=== PATIENT | male | born 1955 | race Caucasian/White ===

== ENCOUNTER 2023-11-29 22:42 | Inpatient (IN) | payer MEDICARE, OTHER ==
[2023-11-29] MEDS ORDERED: NITROGLYCERIN SL TABS 0.4 MG TAB SUBLINGUAL PRN (22:59)
--- NOTE | 2023-11-29 22:59 | ED ---
Chest Pain HPI - General Stated Complaint: chest pain Time Seen by Provider: 11/29/23 22:49 Source: patient Mode of arrival: EMS Limitations: no limitations - History of Present Illness Initial Comments: Patient is a 68-year-old man who was awakened from sleep by chest pain in the early afternoon. The patient had gone to [facility] in [facility] to have evaluation. While the patient was there he had negative initial workup but then second troponin was elevated at 0.391. The patient was then transferred here to have admission for cardiology. The patient states that the symptoms were relieved at the other facility. He had aspirin, nitroglycerin, 2 doses, heparin, and was transferred here. The patient remains symptom-free currently. He denies history of previous CT/stenting. MD Complaint: chest pain Onset/Timin -: hour(s) Onset: during rest Pain Location: left chest, right chest Pain Radiation: RUE, LUE, back, neck Severity: moderate Quality: aching Consistency: now resolved Improves With: nitroglycerin Worsens With: nothing Treatments Prior to Arrival: aspirin, nitroglycerin, oxygen - Related Data Home Medications Medication Instructions Recorded Confirmed Acyclovir [Zovirax] 400 mg PO BID 11/30/23 11/30/23 Sulfamethox-Tmp 800-160Mg [Bactrim 1 tab PO MOWEFR 11/30/23 11/30/23 DS 800-160 mg] predniSONE 5 mg PO DAILY 11/30/23 11/30/23 Previous Rx's Medication Instructions Recorded Aspirin 81 mg PO DAILY #30 tab 12/01/23 Atorvastatin [Lipitor] 80 mg PO HS #30 tab 12/01/23 Losartan [Cozaar] 12.5 mg PO DAILY #15 tab 12/01/23 Metoprolol Succinate (ER) [Toprol 12.5 mg PO DAILY #15 tab 12/01/23 XL] Nitroglycerin Sl Tabs [Nitrostat] 0.4 mg SUBLINGUAL Q5M PRN #20 tab 12/01/23 Ticagrelor [Brilinta] 90 mg PO BID #60 tab 12/01/23 Allergies Allergy/AdvReac Type Severity Reaction Status Date / Time bee venom protein (honey bee) Allergy Anaphylaxis Verified 11/30/23 11:27 hazelnut Allergy Anaphylaxis Verified 11/30/23 11:27 Review of Systems ROS Statement: Those systems with pertinent positive or pertinent negative responses have been documented in the HPI. ROS Other: All systems not noted in ROS Statement are negative. Constitutional: Denies: fever, chills, weakness Respiratory: Denies: cough, dyspnea Cardiovascular: Reports: as per HPI, chest pain. Denies: palpitations, orthopnea, edema, syncope Gastrointestinal: Denies: abdominal pain, nausea, vomiting, diarrhea, constipation Genitourinary: Denies: dysuria, hematuria Musculoskeletal: Denies: back pain Skin: Denies: rash Neurological: Denies: headache, weakness, numbness Past Medical History - Past Family History Father Family Medical History: Coronary Artery Disease (CAD) Mother Family Medical History: Cancer General Exam General appearance: alert, in no apparent distress Head exam: Present: atraumatic, normocephalic Eye exam: Present: normal appearance. Absent: scleral icterus, conjunctival injection ENT exam: Present: normal oropharynx Neck exam: Present: normal inspection Respiratory exam: Present: normal lung sounds bilaterally. Absent: respiratory distress, wheezes, rales, rhonchi, stridor, accessory muscle use Cardiovascular Exam: Present: regular rate, normal rhythm, normal heart sounds. Absent: systolic murmur, diastolic murmur, rubs, gallop GI/Abdominal exam: Present: soft. Absent: distended, tenderness, guarding, rebo und, rigid, mass Extremities exam: Present: normal inspection, normal capillary refill. Absent: pedal edema, calf tenderness Back exam: Present: normal inspection. Absent: CVA tenderness (R), CVA tenderness (L) Neurological exam: Present: alert Skin exam: Present: warm, dry, intact, normal color. Absent: rash Course Vital Signs 11/29/23 11/29/23 11/30/23 22:52 23:04 00:04 Temperature 97.2 F L Pulse Rate 65 77 66 Respiratory 20 14 16 Rate Blood Pressure 180/100 141/108 157/89 O2 Sat by Pulse 97 96 Oximetry Chest Pain MDM - MDM Was pt. sent in by a medical professional or institution (, PA, BLEACH MAKER, urgent care, hospital, or assisted...) When possible be specific @ -[No] Did you speak to anyone other than the patient for history (EMS, parent, family, police, friend...)? What history was obtained from this source @ -[No] Did you review nursing and triage notes (agree or disagree)? Why? @ -[I reviewed and agree with nursing and triage notes] Were old charts reviewed (outside hosp., previous admission, EMS record, old EKG, old radiological studies, urgent care reports/EKG's, assisted records)? Report findings @ -[Transfer charts were reviewed] Differential Diagnosis (chest pain, altered mental status, abdominal pain women, abdominal pain men, vaginal bleeding, weakness, fever, dyspnea, syncope, headache, dizziness, GI bleed, back pain, seizure, CVA, palpatations, mental health, musculoskeletal)? @ -[Differential Chest Pain: Stable Angina, Unstable Angina, STEMI, NSTEMI Aortic Dissection, Pneumothorax, Musculoskeletal, Esophageal Spasm GERD, Cholecystitis, Pancreatitis, Zoster, this is not meant to be an all-inclusive list. EKG interpreted by me (3pts min.). @ -[I interpreted as above] X-rays interpreted by me (1pt min.). @ -[None done] CT interpreted by me (1pt min.). @ -[None done] U/S interpreted by me (1pt. min.). @ -[None done] What testing was considered but not performed or refused? (CT, X-rays, U/S, labs)? Why? @ -[None] What meds were considered but not given or refused? Why? @ -[None] Did you discuss the management of the patient with other professionals (professionals i.e. , PA, BLEACH MAKER, lab, RT, psych nurse, social science manager, developer prover mechanical, teacher, tank officer, case advocate)? Give summary @ -[Yes Case is discussed with the admitting physician and with cardiology Was smoking cessation discussed for >3mins.? @ -[No] Was critical care preformed (if so, how long)? @ -[No] Were there social determinants of health that impacted care today? How? (Homelessness, low income, unemployed, alcoholism, drug addiction, transportation, low edu. Level, literacy, decrease access to med. care, senior care, rehab)? @ -[No] Was there de-escalation of care discussed even if they declined (Discuss DNR or withdrawal of care, Hospice)? DNR status @ -[No] What co-morbidities impacted this encounter? (DM, HTN, Smoking, COPD, CAD, Cancer, CVA, ARF, Chemo, Hep., AIDS, mental health diagnosis, sleep apnea, morbid obesity)? @ -[None] Was patient admitted / discharged? Hospital course, mention meds given and route, prescriptions, significant lab abnormalities, going to OR and other pertinent info. @ -[Patient is a 68-year-old man who was transferred here from the outside hospital to have cardiology evaluation and probable heart catheterization. The patient arrives with resolution of all symptoms. Admission orders are entered including repeat troponins Undiagnosed new problem with uncertain prognosis? @ -[No] Drug Therapy requiring intensive monitoring for toxicity (Heparin, Nitro, Insulin, Cardizem)? @ -[No] Were any procedures done? @ -[No] Diagnosis/symptom? @ -[Acute coronary syndrome, with elevated troponin Acute, or Chronic, or Acute on Chronic? @ -[Acute Uncomplicated (without systemic symptoms) or Complicated (systemic symptoms)? @ -[Uncomplicated Side effects of treatment? @ -[No] Exacerbation, Progression, or Severe Exacerbation? @ -[No] Poses a threat to life or bodily function? How? (Chest pain, USA, CT, pneumonia, PE, COPD, DKA, ARF, appy, cholecystitis, CVA, Diverticulitis, Homicidal, Suicidal, threat to staff... and all critical care pts) @ -[Yes, requires further cardiology evaluation Disposition Clinical Impression: NSTEMI (non-ST elevated myocardial infarction) Disposition: ADMITTED IP TO THIS HOSP Condition: Fair
[2023-11-29] MEDS: HEPARIN SOD,PORK IN 0.45% NACL 25,000 UNIT in 0.45% NACL 1 250ML.BAG IV SCH (23:29)
[2023-11-30] MEDS: NITROGLYCERIN-D5W PMX 50 MG in DEXTROSE/WATER 1 250ML.BAG IV SCH (02:25)
[2023-11-30 03:44] LABS: Mean Platelet Volume 7.8; Platelet Count 223 k/uL (150-450)
[2023-11-30] MEDS ORDERED: LIDOCAINE 1% INJ 10MG/ML (20 ML MDV) ONE (03:56)
[2023-11-30] MEDS ORDERED: HEPARIN SODIUM 1,000 UN/ML (10ML VL) ONE ×2 (03:57→05:05)
[2023-11-30] MEDS ORDERED: fentaNYL (PF) 50 MCG/ML 2 ML AMP ONE (03:57)
[2023-11-30] MEDS ORDERED: VERAPAMIL 2.5 MG/ML 2 ML AMP ONE (03:57)
--- NOTE | 2023-11-30 03:57 | P.CRDCN ---
History of Present Illness History of present illness: HISTORY OF PRESENTING ILLNESS This is a pleasant 68-year-old with past medical history significant for cryoglobulinemia, family history of coronary artery disease who presents as a transfer from [place]. He states over last 1 month he has been having off and on epigastric pain which feels like his normal GERD. He did have workup 25 years ago secondary to GERD type symptoms and had a heart catheterization with reportedly normal coronary arteries and therefore diagnosed with GERD. He was somewhat taking antacids and sometimes the discomfort will go away. Symptoms have been more progressive and therefore went to the emergency department and found to have non-STEMI. He was given aspirin, nitro and heparin and symptoms resolved. He therefore was transferred to [facility] for possible catheterization, intervention. Symptoms had completely gone away however over the last few hours he did have some mild 3/10 discomfort. His discomfort however did not improve and currently 5 out of 10 and therefore catheterization lab was called in. he states he has been fairly well controlled with his cryoglobulinemia on prednisone 5 mg daily. No tobacco, occasional alcohol and no illicit drugs. Father had MO and no other significant family history. Additionally has been having some increased shortness breath with exertion or last 1 month. EKG showing normal sinus rhythm, left axis deviation, nonspecific minimal ST depressions 1 and aVL. Blood work shows troponin 0.39. REVIEW OF SYSTEMS At the time of my exam: CONSTITUTIONAL: Denies fever or chills. CARDIOVASCULAR: +chest pain, +shortness of breath, no orthopnea, PND or palpitations. RESPIRATORY: Denies cough. GASTROINTESTINAL: Denies abdominal pain, diarrhea, constipation, nausea or vomiting. MUSCULOSKELETAL: Denies myalgias. NEUROLOGIC: Denies numbness, tingling or weakness. ENDOCRINE: Denies fatigue, weight change, polydipsia or polyurina. GENITOURINARY: Denies burning, hematuria or urgency with micturation. HEMATOLOGIC: Denies history of anemia or bleeding. PHYSICAL EXAMINATION Vital signs reviewed. CONSTITUTIONAL: No apparent distress. HEENT: Head is normocephalic. Pupils are equal, round. Sclerae anicteric. Mucous membranes of the mouth are moist. No JVD. No carotid bruit. CHEST EXAMINATION: Lungs are clear to auscultation. No chest wall tenderness is noted on palpation or with deep breathing. HEART EXAMINATION: Regular rate and rhythm. S1, S2 heard. No murmurs, gallops or rub. ABDOMEN: Soft, nontender. Positive bowel sounds. EXTREMITIES: 2+ peripheral pulses, no lower extremity edema and no calf tenderness. NEUROLOGIC EXAMINATION: Patient is awake, alert and oriented x3. ASSESSMENT non-STEMI Hyperlipidemia GERD Family history of CAD Cryoglobulinemia PLAN blood work consistent with non-STEMI with increasing troponin. Given ongoing chest pain. Discussed urgent heart catheterization patient agreeable. Aspirin, heparin, nitro drip. Check 2-D echo. Further recommendations to follow. Past Medical History Past Medical History: GERD/Reflux, Prostate Disorder Additional Past Medical History / Comment(s): Cryoglobulin anemia, History of Any Multi-Drug Resistant Organisms: None Reported Past Surgical History: Heart Catheterization, Orthopedic Surgery, Prostate Surgery Past Anesthesia/Blood Transfusion Reactions: No Reported Reaction Past Psychological History: No Psychological Hx Reported Smoking Status: Never smoker Past Alcohol Use History: Occasional Past Drug Use History: None Reported - Past Family History Father Family Medical History: Coronary Artery Disease (CAD) Mother Family Medical History: Cancer Medications and Allergies Allergies Allergy/AdvReac Type Severity Reaction Status Date / Time No Known Allergies Allergy Verified 11/29/23 22:47 Physical Exam Vitals: Vital Signs Temp Pulse Pulse Resp BP BP Pulse Ox 11/30/23 03:35 61 16 120/70 97 11/30/23 03:27 61 18 117/76 98 11/30/23 03:10 65 120/72 11/30/23 02:59 60 16 123/76 97 11/30/23 02:50 64 16 134/80 95 11/30/23 02:45 64 134/86 11/30/23 02:37 65 16 161/84 100 11/30/23 02:31 63 16 159/83 99 11/30/23 02:27 155/83 11/30/23 00:35 98.2 F 64 18 163/83 99 11/30/23 00:04 66 16 157/89 96 11/29/23 23:04 77 14 141/108 11/29/23 22:52 97.2 F L 65 20 180/100 97 Intake and Output 11/29/23 11/29/23 11/30/23 14:59 22:59 06:59 Intake Total 16.643 Balance 16.643 Intake: Intake, IV Titration 16.643 Amount Heparin Sod,Pork in 0.45% 15.668 NaCl 25,000 unit In 0.45 % NaCl 1 250ml.bag @ 12 UNITS/KG/HR 8.546 mls/hr IV .Q24H [place] Rx#: [id number] Nitroglycerin-D5w Pmx 50 0.975 mg In Dextrose/Water 1 250ml.bag @ 5 MCG/MIN 1.5 mls/hr IV .Q24H [place] Rx#: [id number] Other: Weight 71.214 kg 71.214 kg Results 11/30/23 02:50 Cardiac Enzymes 11/30/23 Range/Units 00:28 Troponin I 4.580 H* (0.000-0.034) ng/mL Coagulation 11/30/23 Range/Units 00:28 APTT 39.2 H (22.0-30.0) sec CBC 11/30/23 Range/Units 02:50 Plt Count 223 (150-450) k/uL Current Medications Generic Name Dose Route Start Last Admin Trade Name Freq PRN Reason Stop Dose Admin Aspirin 325 mg 11/30/23 09:00 Aspirin 325 Mg Tab PO DAILY [place] Heparin Sodium/Sodium Chloride 250 mls @ 8.546 mls/hr 11/29/23 23:00 11/30/23 01:19 25,000 unit/ Sodium Chloride IV 14 units/kg/hr .Q24H [place] 9.97 mls/hr Titration Protocol 12 UNITS/KG/HR Nitroglycerin/Dextrose 50 mg/ 250 mls @ 1.5 mls/hr 11/30/23 02:15 11/30/23 02:45 IV Solution IV 20 mcg/min .Q24H [place] 6 mls/hr Infusion 5 MCG/MIN Nitroglycerin 0.4 mg 11/29/23 22:59 Nitroglycerin Sl Tabs 0.4 Mg Tab SUBLINGUAL Q5M PRN Chest Pain Intake and Output 11/29/23 11/29/23 11/30/23 14:59 22:59 06:59 Intake Total 16.643 Balance 16.643 Intake: Intake, IV Titration 16.643 Amount Heparin Sod,Pork in 0.45% 15.668 NaCl 25,000 unit In 0.45 % NaCl 1 250ml.bag @ 12 UNITS/KG/HR 8.546 mls/hr IV .Q24H [place] Rx#: [id number] Nitroglycerin-D5w Pmx 50 0.975 mg In Dextrose/Water 1 250ml.bag @ 5 MCG/MIN 1.5 mls/hr IV .Q24H [place] Rx#: [id number] Other: Weight 71.214 kg 71.214 kg Patient Weight 11/30/23 06:59 Weight 71.214 kg 11/30/23 02:50
[2023-11-30] MEDS: fentaNYL (PF) 50 MCG/ML 2 ML AMP IVP ONE (04:02)
[2023-11-30] MEDS: MIDAZOLAM 2 MG/2 ML VIAL IVP ONE (04:02)
[2023-11-30] MEDS: HEPARIN SODIUM 1,000 UN/ML (10ML VL) IVP ONE ×4 (04:11→05:08)
[2023-11-30] MEDS ORDERED: TICAGRELOR 90 MG TAB ONE (04:14)
[2023-11-30] MEDS: TICAGRELOR 90 MG TAB PO ONE (04:18)
[2023-11-30] MEDS: NITROGLYCERIN 1000MCG/10ML SYRINGE INTRACORON ONE ×2 (04:35→04:54)
--- NOTE | 2023-11-30 05:17 | P.PRCINT ---
Percutaneous Coronary Int. - Percutaneous Coronary Intervention Percutaneous Coronary Intervention: PROCEDURES PERFORMED: Left heart catheterization, bilateral coronary angiography, ultrasound guided arterial access, Penumbra aspiration thrombectomy LAD, PCI mid LAD with a 2.75 x 23mm Xience XENIA, post dilated with a 3.0mm NC balloon INDICATION: non-STEMI CONSENT:I have discussed the risks, benefits and alternative therapies for the above-mentioned procedure and for both sedation/analgesia as well as necessary blood product administration, if indicated, as they pertain to this patient. The patient has indicated understanding and acceptance of the risks and procedures discussed. PROCEDURE: After the risks, benefits and alternatives of the above mentioned procedure explained in detail with the patient, informed consent was obtained. Patient was taken to the catheterization lab and prepped and draped in usual fashion. Ultrasound guidance was used to assess for arterial access. 1% lidocaine was used to anesthetize the right radial artery. A 6-Senegalese sheath was placed in the right radial artery using modified Seldinger technique and ultrasound guidance. Left coronary angiography was performed with a 5-Senegalese JL 3.5 catheter and right coronary angiography was performed with a 5-Senegalese FR5 catheter in various views. A 5-Senegalese FR5 catheter was inserted into the left ventricle and pressure measurements were obtained. the decision was made to perform PCI of LAD. A 6-Senegalese CLS 3.5 guiding disease engage the left main. A 0.014 BMW and whisper wire were attempted to be advanced however were going down the septal branch. Therefore a 0.014 commercial airplane pilot 200 was used and able to make the angulation into the distal LAD. Penumbra aspiration was performed for 2 passes. Next balloon angioplasty was performed with a 2.5 x 12 mm balloon. Next intravascular ultrasound was attempted however technical difficulties. A 2.75 x 23 mm Xience drug-eluting stent was placed. The proximal and midportion of the stent were postdilated with a 3.0 mm noncompliant balloon. Final angiograms were performed. Preintervention there was 100% stenosis with JOSSE 0 flow and postintervention there was less than 10% stenosis with JOSSE 3 flow. There was a more proximal 40-50% stenosis just after the diagonal branch however felt best treated medically. The right radial sheath was removed and a TR band was placed with hemostasis achieved. The patient tolerated the procedure well. Patient was transported back to the post catheterization holding area in stable condition. Conscious Sedation: Patient was monitored under the direct supervision of myself for conscious sedation using Versed and fentanyl for a total duration of 56 minutes HEMODYNAMICS: Aorta: 122/63 LV: 115/5, LVEDP 22 SELECTIVE CORONARY ARTERIOGRAPHY: LEFT MAIN: The left main is a large caliber vessel which bifurcates into the LAD and circumflex. There is no significant stenosis. LEFT ANTERIOR DESCENDING CORONARY ARTERY: LAD is a large caliber vessel which wraps around to the apex. There is 10% proximal LAD stenosis and gives off a moderate caliber diagonal branch. Just after the diagonal branch there is a 40- 50% stenosis followed by a 100% mid LAD stenosis with some left to left collaterals and right to left collaterals. LEFT CIRCUMFLEX CORONARY ARTERY: Left circumflex is a moderate to large caliber vessel with proximal and mid 30-40% stenosis and otherwise mild luminal irregularities. RIGHT CORONARY ARTERY: The right coronary artery is a large caliber vessel which gives off a PDA and PLV branch and is the dominant vessel. There is diffuse 30- 40% stenosis of the proximal mid RCA. There are right to left collaterals FINAL IMPRESSION: 1. CAD as described above including 30-40% proximal and mid RCA, 30-40% proximal and mid circumflex, 100% mid LAD stenosis 2. Elevated left sided filling pressures PLAN: 1. Aggressive risk factor modification per most recent ACC/AHA guidelines. 2. Continue dual antiplatelets with aspirin and Brillinta for 12 months
[2023-11-30] MEDS ORDERED: ZOLPIDEM 5 MG TAB PO PRN (05:18)
[2023-11-30] MEDS ORDERED: RX INFO: IV CONTRAST WAS GIVEN 1 EACH MISC MISCELLANE PRN (05:18)
[2023-11-30] MEDS ORDERED: ATROPINE SULFATE 0.1 MG/ML 10ML SYRINGE IV PRN (05:18)
[2023-11-30] MEDS: IV FLUID CONTINUATION 800 ML IV ONE (05:27)
[2023-11-30] MEDS: HEPARIN SOD,PORK IN 0.45% NACL 25,000 UNIT in 0.45% NACL 1 250ML.BAG IV ONE (05:27)
[2023-11-30] MEDS: NITROGLYCERIN-D5W PMX 50 MG in DEXTROSE/WATER 1 250ML.BAG IV ONE (05:28)
[2023-11-30] MEDS: IOPAMIDOL-370 100ML BTL INJ ONE (05:30)
[2023-11-30] MEDS: SODIUM CHLORIDE 0.9% 1,000 ML in EMPTY BAG 1 BAG IV SCH (05:40)
[2023-11-30] MEDS ORDERED: MAG HYDROX/AL HYDROX/SIMETH 30 ML CUP PO PRN (08:00)
[2023-11-30] MEDS: LOSARTAN 25 MG TAB PO SCH (08:40)
[2023-11-30] MEDS: ASPIRIN 81 MG PO SCH (08:41)
[2023-11-30] MEDS: METOPROLOL SUCCINATE (ER) 25 MG TAB.ER.24H PO SCH (08:41)
[2023-11-30] MEDS: TICAGRELOR 90 MG TAB PO SCH (08:42)
[2023-11-30] MEDS ORDERED: ASPIRIN 325 MG TAB PO SCH (09:00)
[2023-11-30 13:15] LABS: Chol/HDL Ratio 4.39 Ratio
[2023-11-30 13:16] LABS: LDL Cholesterol,Calculated 128.7 mg/dL (0.0-131.0)
[2023-11-30 14:37] VITALS: BMI 30.7
--- NOTE | 2023-11-30 16:57 | P.HPIM ---
History of Present Illness H&P Date: 11/30/23 Chief Complaint: Chest pain 68-year-old man who was awakened from sleep by chest pain in the early afternoon. The patient had gone to [facility] to have evaluation. While the patient was there he had negative initial workup but then second troponin was elevated at 0.391. The patient was then transferred here to have admission for cardiology. The patient states that the symptoms were relieved at the other facility. He had aspirin, nitroglycerin, 2 doses, heparin, and was transferred here. The patient remains symptom-free currently. He denies history of previous MA/stenting. Blood work completed in our ER reveals magnesium of 2.4, troponin trending up from 4.5 up to 6.33, total cholesterol of 207, LDL of 128 and HDL of 47 EKG showing normal sinus rhythm, left axis deviation, nonspecific minimal ST depressions 1 and aVL. Patient is evaluated by cardiology and is recommended cardiac catheterization Review of Systems REVIEW OF SYSTEMS: CONSTITUTIONAL: No fever, no malaise, no fatigue. HEENT: No recent visual problems or hearing problems. Denied any sore throat. CARDIOVASCULAR: No chest pain, orthopnea, PND, no palpitations, no syncope. PULMONARY: No shortness of breath, no cough, no hemoptysis. GASTROINTESTINAL: No diarrhea, no nausea, no vomiting, no abdominal pain. NEUROLOGICAL: No headaches, no weakness, no numbness. HEMATOLOGICAL: Denies any bleeding or petechiae. GENITOURINARY: Denies any burning micturition, frequency, or urgency. MUSCULOSKELETAL/RHEUMATOLOGICAL: Denies any joint pain, swelling, or any muscle pain. ENDOCRINE: Denies any polyuria or polydipsia. The rest of the 14-point review of systems is negative. Past Medical History Past Medical History: GERD/Reflux, Prostate Disorder Additional Past Medical History / Comment(s): Cryoglobulin anemia, History of Any Multi-Drug Resistant Organisms: None Reported Past Surgical History: Heart Catheterization, Orthopedic Surgery, Prostate Surgery Past Anesthesia/Blood Transfusion Reactions: No Reported Reaction Past Psychological History: No Psychological Hx Reported Smoking Status: Never smoker Past Alcohol Use History: Occasional Past Drug Use History: None Reported - Past Family History Father Family Medical History: Coronary Artery Disease (CAD) Mother Family Medical History: Cancer Medications and Allergies Home Medications Medication Instructions Recorded Confirmed Type Acyclovir [Zovirax] 400 mg PO BID 11/30/23 11/30/23 History Sulfamethox-Tmp 800-160Mg [Bactrim 1 tab PO MOWEFR 11/30/23 11/30/23 History DS 800-160 mg] predniSONE 5 mg PO DAILY 11/30/23 11/30/23 History Allergies Allergy/AdvReac Type Severity Reaction Status Date / Time bee venom protein (honey bee) Allergy Anaphylaxis Verified 11/30/23 11:27 hazelnut Allergy Anaphylaxis Verified 11/30/23 11:27 Physical Exam Vitals: Vital Signs Temp Pulse Pulse Resp BP BP BP 11/30/23 09:40 66 20 127/76 11/30/23 08:43 67 20 126/82 11/30/23 07:39 98 F 64 20 119/76 11/30/23 06:25 62 16 119/72 11/30/23 06:10 56 L 18 113/72 11/30/23 05:55 18 110/69 11/30/23 05:40 16 111/68 11/30/23 05:26 16 136/75 11/30/23 03:35 61 16 120/70 11/30/23 03:27 61 18 117/76 11/30/23 03:10 65 120/72 11/30/23 02:59 60 16 123/76 11/30/23 02:50 64 16 134/80 11/30/23 02:45 64 134/86 11/30/23 02:37 65 16 161/84 11/30/23 02:31 63 16 159/83 11/30/23 02:27 155/83 11/30/23 00:35 98.2 F 64 18 163/83 11/30/23 00:04 66 16 157/89 11/29/23 23:04 77 14 141/108 11/29/23 22:52 97.2 F L 65 20 180/100 Pulse Ox 11/30/23 09:40 11/30/23 08:43 99 11/30/23 07:39 100 11/30/23 06:25 98 11/30/23 06:10 96 11/30/23 05:55 97 11/30/23 05:40 95 11/30/23 05:26 96 11/30/23 03:35 97 11/30/23 03:27 98 11/30/23 03:10 11/30/23 02:59 97 11/30/23 02:50 95 11/30/23 02:45 11/30/23 02:37 100 11/30/23 02:31 99 11/30/23 02:27 11/30/23 00:35 99 11/30/23 00:04 96 11/29/23 23:04 11/29/23 22:52 97 Intake and Output 11/29/23 11/30/23 11/30/23 22:59 06:59 14:59 Intake Total 136.643 Balance 136.643 Intake: IV 120 Intake, IV Titration 16.643 Amount Heparin Sod,Pork in 0.45% 15.668 NaCl 25,000 unit In 0.45 % NaCl 1 250ml.bag @ 12 UNITS/KG/HR 8.546 mls/hr IV .Q24H [facility] Rx#: [id number] Nitroglycerin-D5w Pmx 50 0.975 mg In Dextrose/Water 1 250ml.bag @ 5 MCG/MIN 1.5 mls/hr IV .Q24H [facility] Rx#: [id number] Other: Weight 71.214 kg 78.5 kg General appearance: alert, in no apparent distress Head exam: Present: atraumatic, normocephalic Eye exam: Present: normal appearance. Absent: scleral icterus, conjunctival injection ENT exam: Present: normal oropharynx Neck exam: Present: normal inspection Respiratory exam: Present: normal lung sounds bilaterally. Absent: respiratory distress, wheezes, rales, rhonchi, stridor, accessory muscle use Cardiovascular Exam: Present: regular rate, normal rhythm, normal heart sounds. Absent: systolic murmur, diastolic murmur, rubs, gallop GI/Abdominal exam: Present: soft. Absent: distended, tenderness, guarding, rebound, rigid, mass Extremities exam: Present: normal inspection, normal capillary refill. Absent: pedal edema, calf tenderness Back exam: Present: normal inspection. Absent: CVA tenderness (R), CVA tenderness (L) Neurological exam: Present: alert Skin exam: Present: warm, dry, intact, normal color. Absent: rash Results CBC & Chem 7: 11/30/23 02:50 Labs: Abnormal Lab Results - Last 24 Hours (Table) 11/30/23 11/30/23 11/30/23 Range/Units 00:28 00:28 02:50 APTT 39.2 H (22.0-30.0) sec Troponin I 4.580 H* 6.330 H* (0.000-0.034) ng/mL 11/30/23 Range/Units 07:31 APTT 110.6 H* (22.0-30.0) sec Troponin I (0.000-0.034) ng/mL Thrombosis Risk Factor Assmnt - Choose All That Apply Any of the Below Risk Factors Present?: Yes Each Factor Represents 1 point: Medical pt on bed rest, Obesity (BMI >25) Other Risk Factors: Yes Each Risk Factor Represents 2 Points: Age 61-74 years Other congenital or acquired thrombophilia - If yes, enter type in comment: No Thrombosis Risk Factor Assessment Total Risk Factor Score: 4 Thrombosis Risk Factor Assessment Level: Moderate Risk Assessment and Plan Assessment: 1. NSTEMI; -Troponin continues to trend up; patient remains on IV heparin and aspirin -ID on board and recommending 2D echo and to proceed with cardiac catheterization; and is agreeable -Patient is evaluated for post cardiac catheterization -- LEFT MAIN: The left main is a large caliber vessel which bifurcates into the LAD and circumflex. There is no significant stenosis. LEFT ANTERIOR DESCENDING CORONARY ARTERY: LAD is a large caliber vessel which wraps around to the apex. There is 10% proximal LAD stenosis and gives off a moderate caliber diagonal branch. Just after the diagonal branch there is a 40- 50% stenosis followed by a 100% mid LAD stenosis with some left to left collaterals and right to left collaterals. LEFT CIRCUMFLEX CORONARY ARTERY: Left circumflex is a moderate to large caliber vessel with proximal and mid 30-40% stenosis and otherwise mild luminal irregularities. RIGHT CORONARY ARTERY: The right coronary artery is a large caliber vessel which gives off a PDA and PLV branch and is the dominant vessel. There is diffuse 30- 40% stenosis of the proximal mid RCA. There are right to left collaterals -- Patient to continue with aspirin and Brilinta for 12 months -- Recommended risk factor modification 2. Hyperlipidemia; Lipitor 80 mg p.o. nightly 3. Hypertension; patient has been placed on losartan 12.5 mg daily along with metoprolol 12.5 mg daily 4. Gastroesophageal reflux disease; PPI 5. Cryoglobulinemia DVT prophylaxis; SCDs/heparin CODE STATUS;
[2023-11-30 19:58] VITALS: TEMP 98.9
[2023-11-30] MEDS: ATORVASTATIN 80 MG TAB PO SCH (20:01)
[2023-12-01 04:23] VITALS: RESP 18
[2023-12-01 08:13] LABS: Basophils % (A) 0 %; Eosinophils # (A) 0.1 k/uL (0-0.7); Eosinophils % (A) 2 %; HCT 38.8 % (39.0-53.0); HGB 13.1 gm/dL (13.0-17.5); Lymphocytes # (A) 0.9 k/uL (1.0-4.8); Lymphocytes % (A) 16 %; MCH 31.7 pg (25.0-35.0); MCHC 33.7 g/dL (31.0-37.0); MCV 94.1 fL (80.0-100.0); Mean Platelet Volume 7.9; Monocytes # (A) 0.5 k/uL (0-1.0); Monocytes % (A) 9 %; Neutrophils % (A) 73 %; Platelet Count 219 k/uL (150-450); RBC 4.12 m/uL (4.30-5.90); RDW 13.5 % (11.5-15.5); WBC 5.5 k/uL (3.8-10.6)
[2023-12-01 08:36] LABS: African American GFR (CKD) >90 (>60 ml/min/1.73 sqM); Anion Gap 3 mmol/L; Blood Urea Nitrogen 11 mg/dL (9-20); Calcium 8.5 mg/dL (8.4-10.2); Carbon Dioxide 25 mmol/L (22-30); Chloride 109 mmol/L (98-107); Glucose 137 mg/dL (74-99); Non-African American GFR(CKD) >90 (>60 ml/min/1.73 sqM); Potassium 3.6 mmol/L (3.5-5.1); Sodium 137 mmol/L (137-145)
[2023-12-01 11:58] VITALS: BP 133/83; PULSE 75
--- NOTE | 2023-12-01 13:55 | P.PN ---
Subjective Progress Note Date: 12/01/23 HISTORY OF PRESENTING ILLNESS This is a pleasant 68-year-old with past medical history significant for cry oglobulinemia, family history of coronary artery disease who presents as a transfer from [facility]. He states over last 1 month he has been having off and on epigastric pain which feels like his normal GERD. He did have workup 25 years ago secondary to GERD type symptoms and had a heart catheterization with reportedly normal coronary arteries and therefore diagnosed with GERD. He was somewhat taking antacids and sometimes the discomfort will go away. Symptoms have been more progressive and therefore went to the emergency department and found to have non-STEMI. He was given aspirin, nitro and heparin and symptoms resolved. He therefore was transferred to [facility] for possible catheterization, intervention. Symptoms had completely gone away however over the last few hours he did have some mild 3/10 discomfort. His discomfort however did not improve and currently 5 out of 10 and therefore catheterization lab was called in. he states he has been fairly well controlled with his cryoglobulinemia on prednisone 5 mg daily. No tobacco, occasional alcohol and no illicit drugs. Father had [place] and no other significant family history. Additionally has been having some increased shortness breath with exertion or last 1 month. EKG showing normal sinus rhythm, left axis deviation, nonspecific minimal ST depressions 1 and aVL. Blood work shows troponin 0.39. He underwent left heart catheterization 11/30/2023 which revealed CAD including 30-40% proximal and mid RCA, 30-40% proximal and mid circumflex, 100% mid LAD stenosis, status post PCI of the LAD. He was started on aspirin and Brilinta. 12/01/2023 He reports that he is feeling great, denies any chest pain or pressure. No shortness of breath. He wants to go home. He states that he is planning to follow-up with the [facility] after discharge as he is from [place]. PHYSICAL EXAMINATION Vital signs reviewed. CONSTITUTIONAL: No apparent distress. HEENT: Head is normocephalic. Pupils are equal, round. Sclerae anicteric. Mucous membranes of the mouth are moist. No JVD. No carotid bruit. CHEST EXAMINATION: Lungs are clear to auscultation. No chest wall tenderness is noted on palpation or with deep breathing. HEART EXAMINATION: Regular rate and rhythm. S1, S2 heard. No murmurs, gallops or rub. ABDOMEN: Soft, nontender. Positive bowel sounds. EXTREMITIES: 2+ peripheral pulses, no lower extremity edema and no calf tenderness. Right radial site with no redness swelling or drainage. NEUROLOGIC EXAMINATION: Patient is awake, alert and oriented x3. ASSESSMENT NSTEMI Hyperlipidemia GERD Family history of CAD Cryoglobulinemia CAD including 30-40% proximal and mid RCA, 30-40% proximal and mid circumflex, 100% mid LAD stenosis, status post PCI of the LAD PLAN Echocardiogram is still pending however given the holiday today will not be able to be done until tomorrow. Patient would like to be discharged home today. He was provided with a prescription to have echo done as soon as possible. We did discuss the risk if he does have a possible low ejection fraction he has increased risk of cardiac arrhythmias, he verbalized understanding and would like to proceed with echo as an outpatient. Continue with dual antiplatelet therapy for 12 months post PCI. LDL goal less than 70. Follow-up with cardiology in 1-2 weeks. He is cleared for discharge from a cardiology standpoint. Patient seen and examined in rounds with Dr. Cox, plan of care agreed upon. Objective - Vital Signs Vital signs: Vital Signs Temp 98.9 F 11/30/23 19:57 Pulse 75 12/01/23 11:57 Resp 18 12/01/23 08:00 BP 133/83 12/01/23 11:57 Pulse Ox 97 12/01/23 11:57 FiO2 Intake & Output 11/30/23 12/01/23 12/01/23 18:59 06:59 18:59 Intake Total 1092 Balance 1092 Weight 78.5 kg Intake: Intake, IV Titration 852 Amount Sodium Chloride 0.9% 1, 852 000 ml In Empty Bag 1 bag @ 1 ML/KG/HR 71.214 mls/ hr IV .Q14H3M [facility] Rx#: [id number] Oral 240 Other: # Voids 1 3 - Labs CBC & Chem 7: 12/01/23 07:47 12/01/23 07:47 Labs: Abnormal Lab Results - Last 24 Hours (Table) 11/30/23 12/01/23 12/01/23 Range/Units 02:50 07:47 07:47 RBC 4.12 L (4.30-5.90) m/uL Hct 38.8 L (39.0-53.0) % Lymphocytes # 0.9 L (1.0-4.8) k/uL Chloride 109 H (98-107) mmol/L Glucose 137 H (74-99) mg/dL Magnesium 2.4 H (1.6-2.3) mg/dL
--- NOTE | 2023-12-02 06:02 | P.DS ---
Providers Date of admission: 11/29/23 23:07 Attending physician: Mecca Melvin Consults: 11/29/23 22:59 Consult Physician Routine Consulting Provider: Mynor Cox Consult Reason/Comments: Coronary syndrome Do you want consulting provider notified?: Yes 11/30/23 05:18 Consult Physician Routine Consulting Provider: [facility] Consult Reason/Comments: Post Interventional Patient Do you want consulting provider notified?: Already Contacted Primary care physician: Stated None Hospital Course: Diagnoses: Non-STEMI status post PCI to LAD Hyperlipidemia Hypertension History of GERD History of cardiac cryoglobulinemia Hospital course: 68-year-old man who was awakened from sleep by chest pain x 11 day The patient had gone to [facility] in [facility] to have evaluation. While the patient was there he had negative initial workup but then second troponin was elevated at 0.391. The patient was then transferred here to have admission for cardiology. The patient states that the symptoms were relieved at the other facility. Patient evaluated by cardiology service and underwent cardiac catheterization: Showing coronary artery stenosis RCA 30 to 45%, left circumflex 30 to 45% and LAD 100% s/p PCI to LAD. Patient postprocedure Doing well. No chest pain no dyspnea. No other complaint. Patient was eager to go home asking to be discharged. Patient started on dual antiplatelet therapy with aspirin and Brilinta as well as metoprolol and lisinopril and Lipitor. Prescription provided for the patient I discussed the case with Dr. Cox who cleared her for discharge and that Kenny will try to make the arrangement to do an echocardiogram as an outpatient as patient is eager to go home today. Patient originally from [place] and he intends to follow-up with his PCP and transit clerk in that area. Problems and management plan were discussed with the patient and he verbalized understanding and acceptance Patient was found stable and can be discharged home in guarded prognosis however he needs follow-up as an outpatient. Patient was instructed to follow up with PCP within one week and patient agrees Patient was instructed to follow-up with transit clerk Dr. Cox in 1 to 2 days to do an echocardiogram as an outpatient per recommendation of transit clerk. patient also was instructed to follow-up with his transit clerk by pulm and oncology within 1 week and he agrees, patient has the contact information and placed Physical exam Gen: patient is a AAOx3, no distress CVS: S1-S2, RRR, no murmur Lungs: B/L CTA, no wheezing Abdomen: soft, no distention, no tenderness, positive bowel sounds Extremity: no leg edema or induration Time spent more than 35 minutes Patient Condition at Discharge: Fair Plan - Discharge Summary Discharge Rx Participant: No New Discharge Prescriptions: New Aspirin 81 mg PO DAILY #30 tab Ticagrelor [Brilinta] 90 mg PO BID #60 tab Losartan [Cozaar] 12.5 mg PO DAILY #15 tab Nitroglycerin Sl Tabs [Nitrostat] 0.4 mg SUBLINGUAL Q5M PRN #20 tab PRN Reason: Chest Pain Atorvastatin [Lipitor] 80 mg PO HS #30 tab Metoprolol Succinate (ER) [Toprol XL] 12.5 mg PO DAILY #15 tab Continue Acyclovir [Zovirax] 400 mg PO BID No Action Sulfamethox-Tmp 800-160Mg [Bactrim DS 800-160 mg] 1 tab PO MOWEFR predniSONE 5 mg PO DAILY Discharge Medication List Acyclovir [Zovirax] 400 mg PO BID 11/30/23 [History] Sulfamethox-Tmp 800-160Mg [Bactrim DS 800-160 mg] 1 tab PO MOWEFR 11/30/23 [History] predniSONE 5 mg PO DAILY 11/30/23 [History] Aspirin 81 mg PO DAILY #30 tab 12/01/23 [Rx] Atorvastatin [Lipitor] 80 mg PO HS #30 tab 12/01/23 [Rx] Losartan [Cozaar] 12.5 mg PO DAILY #15 tab 12/01/23 [Rx] Metoprolol Succinate (ER) [Toprol XL] 12.5 mg PO DAILY #15 tab 12/01/23 [Rx] Nitroglycerin Sl Tabs [Nitrostat] 0.4 mg SUBLINGUAL Q5M PRN #20 tab 12/01/23 [Rx] Ticagrelor [Brilinta] 90 mg PO BID #60 tab 12/01/23 [Rx] Follow up Appointment(s)/Referral(s): Mynor Cox DO [STAFF PHYSICIAN] - 1-2 Days None,Stated [Primary Care Provider] - 1-2 days Patient Instructions/Handouts: Heart Attack (DC) Activity/Diet/Wound Care/Special Instructions: Heart healthy diet Activity is restricted till you see your doctor we recommend to follow-up with your transit clerk dr Cox tomorrow for echocardiogram Discharge Disposition: HOME SELF-CARE
== END 2023-12-01 14:43 | disposition home or self-care (01) | DRG 322 ==
LOC: EC 22:42 → 3SCARD 23:07
PROVIDERS: ADMIT Hospitalist; ATTEND Hospitalist
DX: I21.4 Non-ST elevation (NSTEMI) myocardial infarction (principal); K21.9 Gastro-esophageal reflux disease without esophagitis; D89.1 Cryoglobulinemia; E78.5 Hyperlipidemia, unspecified; I10 Essential (primary) hypertension; I25.10 Atherosclerotic heart disease of native coronary artery without angina pectoris; N42.9 Disorder of prostate, unspecified; E66.9 Obesity, unspecified; Z68.30 Body mass index [BMI] 30.0-30.9, adult; Z71.3 Dietary counseling and surveillance; Z79.899 Other long term (current) drug therapy; Z79.82 Long term (current) use of aspirin; Z79.02 Long term (current) use of antithrombotics/antiplatelets; Z79.52 Long term (current) use of systemic steroids; Z82.49 Family history of ischemic heart disease and other diseases of the circulatory system
CPT/HCPCS: 80048; 80061; 83735; 84484; 85025; 85049; 85730; 92973; 93458; 96365; 99291

== ENCOUNTER → 2023-12-02 | Outpatient (CLI) | payer MEDICARE, OTHER ==
--- NOTE | 2023-12-03 10:40 | CA ---
Transthoracic Echo Report Name: Carlos Ugarte Age: 68 Gender: M : 1955 Exam Date: 12/02/2023 13:17 Exam Location: [facility] Ht (in): 63 Wt (lb): 157 Ordering Physician: Mynor Cox DO Attending/Referring Phys: Nonstaff, Physician Event Marketing Coordinator Priscilla Espinoza RDCS Procedure CPT: Indications: CAD; STEMI Cardiac Hx: Technical Quality: Technically difficult study Contrast 1: Definity Total Dose (mL): 2 Contrast 2: Total Dose (mL): MEASUREMENTS (Male / Female) Normal Values 2D ECHO LV Diastolic Diameter PLAX 4.3 cm 4.2 - 5.9 / 3.9 - 5.3 cm LV Systolic Diameter PLAX 2.9 cm IVS Diastolic Thickness 0.9 cm 0.6 - 1.0 / 0.6 - 0.9 cm LVPW Diastolic Thickness 1.0 cm 0.6 - 1.0 / 0.6 - 0.9 cm LV Relative Wall Thickness 0.4 LVOT Diameter 1.9 cm LV Diastolic Volume MOD BP 92.8 cm??? 67 - 155 / 56 - 104 cm??? LV Systolic Volume MOD BP 39.3 cm??? 22 - 58 / 19 - 49 cm??? LV Ejection Fraction MOD BP 57.7 % >= 55 % LV Cardiac Index MOD BP 2111.9 cm???/min???m??? LV Diastolic Volume MOD 4C 89.5 cm??? LV Systolic Volume MOD 4C 42.5 cm??? LV Ejection Fraction MOD 4C 52.5 % LV Cardiac Index MOD 4C 1855.3 cm???/min???m??? LV Diastolic Length 4C 7.7 cm LV Systolic Length 4C 6.2 cm LV Diastolic Volume MOD 2C 93.6 cm??? LV Systolic Volume MOD 2C 34.8 cm??? LV Ejection Fraction MOD 2C 62.9 % LV Cardiac Index MOD 2C 2322.5 cm???/min???m??? LV Diastolic Length 2C 7.9 cm LV Systolic Length 2C 6.6 cm LA Volume 45.4 cm??? 18 - 58 / 22 - 52 cm??? LA Volume Index 25.3 cm???/m??? 16 - 28 cm???/m??? Ascending Aorta Diameter 3.6 cm DOPPLER AV Peak Velocity 156.8 cm/s AV Peak Gradient 9.8 mmHg AV Mean Velocity 106.6 cm/s AV Mean Gradient 5.1 mmHg AV Velocity Time Integral 31.5 cm MV Area PHT 3.4 cm??? Mitral E Point Velocity 68.3 cm/s Mitral A Point Velocity 103.3 cm/s Mitral E to A Ratio 0.7 MV Deceleration Time 220.2 ms TR Peak Velocity 255.2 cm/s TR Peak Gradient 26.1 mmHg Right Atrial Pressure 5.0 mmHg Pulmonary Artery Systolic Pressu 31.1 mmHg Right Ventricular Systolic Press 31.1 mmHg PV Peak Velocity 107.7 cm/s PV Peak Gradient 4.6 mmHg FINDINGS Left Ventricle Left ventricular ejection fraction is estimated at 55-60%. Left ventricular cavity size normal. Left ventricular wall thickness normal. No obvious regional wall motion abnormalities. Right Ventricle Normal right ventricular size and function. Right ventricular systolic pressure within normal limits. Right Atrium Normal right atrial size. Left Atrium Normal left atrial size. Mitral Valve Structurally normal mitral valve. No evidence for mitral valve prolapse. No mitral stenosis. Trace mitral regurgitation. Aortic Valve Aortic valve not well visualized. No aortic stenosis. Mild aortic regurgitation. Tricuspid Valve Structurally normal tricuspid valve. No tricuspid stenosis. Mild tricuspid regurgitation. Pulmonic Valve Pulmonic valve not well visualized. No pulmonic stenosis. No pulmonic regurgitation. Pericardium No pericardial effusion. Aorta Normal size aortic root and proximal ascending aorta. CONCLUSIONS . Normal LV size and systolic function. There is no significant abnormality on the Doppler exam. No pericardial effusion Previewed by: Dr. Eliesre Singh MD (Electronically Signed) Final Date: 03 December 2023 10:39
== END | disposition home or self-care (01) ==
LOC: RADECHMAIN 12:52
PROVIDERS: ATTEND Internal Medicine
CPT/HCPCS: 93306